=== PATIENT | female | born 1940 | race Caucasian/White ===

== ENCOUNTER 2017-10-15 16:39 | Observation (INO) | payer MEDICARE ==
[~2017-10-15] VITALS: Ht 157.5 cm; Wt 72.0 kg
[~2017-10-15 16:39] MED LIST: ACET325T14 PO; ASPI-515 PO; ATOR10TA PO; DOCU-131 PO; ENOX40SY4 SQ; MULT-26 PO; OMEG300C PO; POLY454P4 PO
[2017-10-15] MEDS ORDERED: SODIUM CHLORIDE FLUSH 10ML SYR IVF ONE (17:00)
[2017-10-15 17:19] LABS: MICROSCOPIC NOT IND
[2017-10-15 17:26] LABS: CULTURE INDICATED? NO
[2017-10-15 17:32] LABS: BASOPHILS # (AUTO) 0.03 x10^3/uL (0-0.1); BASOPHILS % (AUTO) 1 % (0-1); EOSINOPHILS # (AUTO) 0.08 x10^3/uL (0-0.4); EOSINOPHILS % (AUTO) 2 % (1-7); LYMPHOCYTES # (AUTO) 2.28 x10^3/uL (1-3.4); LYMPHOCYTES % (AUTO) 46 % (22-44); MD NO; MEAN CORPUSCULAR HEMOGLOBIN 32.1 pg (27.0-34.8); MEAN CORPUSCULAR HGB CONC 34.4 g/dL (32.4-35.8); MEAN CORPUSCULAR VOLUME 93.4 fL (80-100); MEAN PLATELET VOLUME 7.7 fL (7.4-10.4); MONOCYTES # (AUTO) 0.71 x10^3/uL (0.2-0.8); MONOCYTES % (AUTO) 14 % (2-9); NEUTROPHILS # (AUTO) 1.85 x10^3/uL (1.8-6.8); NEUTROPHILS % (AUTO) 37 % (42-75); PLATELET COUNT 203 x10^3/uL (130-400); RED BLOOD COUNT 4.22 x10^6/uL (3.82-5.3); RED CELL DISTRIBUTION WIDTH 14.1 % (9.6-15.2)
[2017-10-15 17:41] LABS: ALANINE AMINOTRANSFERASE 28 U/L (12-78); ALBUMIN 3.6 g/dL (3.4-5.0); ANION GAP 10 mmol/L (5-15); CALCIUM 8.5 mg/dL (8.5-10.1); CHLORIDE 106 mmol/L (98-107); CREATININE 0.89 mg/dL (0.55-1.02)
[2017-10-15 17:46] LABS: ALKALINE PHOSPHATASE 62 U/L (45-117); BILIRUBIN,TOTAL 0.7 mg/dL (0.2-1.0); TOTAL PROTEIN 6.9 g/dL (6.4-8.2); TROPONIN I < 0.015 ng/mL (0.000-0.045)
[2017-10-15 19:00] LABS: INTERNATIONAL NORMALIZED RATIO 1.04 (0.93-1.1); PROTHROMBIN TIME 10.8 Seconds (9.6-11.5)
[2017-10-15] MEDS ORDERED: [UNRECOGNIZED DRUG - OTHER] (19:23)
[2017-10-15] MEDS ORDERED: calcium PO (19:25)
[2017-10-15] MEDS ORDERED: b complex PO (19:25)
[2017-10-15] MEDS ORDERED: macutene PO (19:25)
[2017-10-15 20:52] LABS: TROPONIN I < 0.015 ng/mL (0.000-0.045)
[2017-10-15] MEDS ORDERED: ATORVASTATIN 40 MG TABLET PO SCH (21:00)
[2017-10-15 21:21] VITALS: BP 118/74
[2017-10-15] MEDS ORDERED: ATOR40TA78 PO (21:33)
[2017-10-15] MEDS ORDERED: MULT-717 PO (21:34)
[2017-10-16 01:59] VITALS: BP 105/61
[2017-10-16 01:59] LABS: BASOPHILS # (AUTO) 0.01 x10^3/uL (0-0.1); BASOPHILS % (AUTO) 0 % (0-1); EOSINOPHILS # (AUTO) 0.11 x10^3/uL (0-0.4); EOSINOPHILS % (AUTO) 2 % (1-7); LYMPHOCYTES # (AUTO) 2.59 x10^3/uL (1-3.4); LYMPHOCYTES % (AUTO) 51 % (22-44); MD NO; MEAN CORPUSCULAR HEMOGLOBIN 32.2 pg (27.0-34.8); MEAN CORPUSCULAR HGB CONC 34.4 g/dL (32.4-35.8); MEAN CORPUSCULAR VOLUME 93.8 fL (80-100); MEAN PLATELET VOLUME 7.7 fL (7.4-10.4); MONOCYTES # (AUTO) 0.81 x10^3/uL (0.2-0.8); MONOCYTES % (AUTO) 16 % (2-9); NEUTROPHILS # (AUTO) 1.59 x10^3/uL (1.8-6.8); NEUTROPHILS % (AUTO) 31 % (42-75); PLATELET COUNT 196 x10^3/uL (130-400); RED BLOOD COUNT 4.31 x10^6/uL (3.82-5.3); RED CELL DISTRIBUTION WIDTH 14.3 % (9.6-15.2)
[2017-10-16 02:12] LABS: ANION GAP 6 mmol/L (5-15); CALCIUM 8.4 mg/dL (8.5-10.1); CHLORIDE 110 mmol/L (98-107); CHOLESTEROL, TOTAL 179 mg/dL (140-239); CREATININE 0.95 mg/dL (0.55-1.02); TRIGLYCERIDES 187 mg/dL (50-200); VLDL CHOLESTEROL 37 mg/dL (0-25)
[2017-10-16 02:14] LABS: CHOL/HDL RATIO 3.4; HDL CHOL % 29 % (28-40); HDL CHOLESTEROL (DIRECT) 52 mg/dL (40-60); LDL CHOLESTEROL,CALCULATED 90 mg/dL (54-169); LDL/HDL RATIO 1.7 (0.5-3.0)
[2017-10-16 02:15] LABS: TROPONIN I < 0.015 ng/mL (0.000-0.045)
[2017-10-16] MEDS ORDERED: ASPIRIN 81 MG TABLET EC PO SCH (06:00)
[2017-10-16 07:31] VITALS: BP 108/67
[2017-10-16] MEDS ORDERED: ASPI-621 PO (11:40)
== END 2017-10-16 12:52 | disposition home or self-care (01) ==
LOC: ED 19:00 → 5SO 19:24 → INTOOBSV 19:24 → DCLOUNGE 10-16 12:35
PROVIDERS: ADMIT Internal Medicine; ATTEND Internal Medicine
DX: R07.89 Other chest pain (principal); E78.00 Pure hypercholesterolemia, unspecified; E78.5 Hyperlipidemia, unspecified; Z79.82 Long term (current) use of aspirin; Z80.3 Family history of malignant neoplasm of breast; Z80.41 Family history of malignant neoplasm of ovary; Z85.3 Personal history of malignant neoplasm of breast; Z92.21 Personal history of antineoplastic chemotherapy; Z92.3 Personal history of irradiation
CPT/HCPCS: 36415; 71045; 80048; 80053; 80061; 81003; 84484; 85025; 85610; 85730; 93005; 93017; 99285; G0378